=== PATIENT | male | born 1990 | race Caucasian/White ===

== ENCOUNTER 2017-08-06 01:24 | Inpatient (IN) | payer SELFPAY ==
[~2017-08-06] VITALS: Ht 175.3 cm; Wt 76.7 kg
[2017-08-06] MEDS ORDERED: ONDANSETRON HCL 4MG/2ML VIAL IV STA (03:02)
[2017-08-06] MEDS ORDERED: FAMOTIDINE 20MG/2ML VIAL IV STA (03:02)
[2017-08-06] MEDS ORDERED: MORPHINE SULFATE 4 MG/ML CPJ (NOT FOR IM USE) IV STA (03:02)
[2017-08-06] MEDS ORDERED: SODIUM CHLORIDE 0.9% 1,000 ML IV ONE (03:02)
[2017-08-06 03:37] LABS: BASOPHILS % 0.5 % (0.0-2.0); EOSINOPHILS % 2.1 % (0.0-5.0); HEMATOCRIT. 46.9 % (42.0-52.0); HEMOGLOBIN. 16.2 g/dL (14.0-18.0); LYMPHOCYTES % 23.9 % (20.0-50.0); MEAN CORPUSCULAR HEMOGLOBIN 30.1 pg (28.0-32.0); MEAN PLATELET VOLUME 9.1 fl (7.4-10.4); MONOCYTES % 7.1 % (2.0-8.0); NEUTROPHILS % 66.4 % (40.0-76.0); PLATELET 221 x1000/uL (130-400); RED BLOOD CELL COUNT 5.39 mill/uL (4.7-6.1); RED CELL DISTRIBUTION WIDTH 13.7 % (11.6-14.6)
[2017-08-06 03:43] LABS: CARBON DIOXIDE 27 mEq/L (21-32); CHLORIDE 102 mEq/L (98-107)
[2017-08-06] MEDS ORDERED: MORPHINE SULFATE 4 MG/ML CPJ (NOT FOR IM USE) IV ONE (05:15)
[2017-08-06 08:00] VITALS: BP 107/71
[2017-08-06 08:40] VITALS: BP 107/77
[2017-08-06] MEDS ORDERED: SODIUM CHLORIDE 0.45% 1,000 ML IV SCH ×2 (08:57→10:45)
[2017-08-06] MEDS ORDERED: HYDROCODONE/ACETAMINOPHEN 5/325MG TABLET PO PRN (09:00)
[2017-08-06] MEDS ORDERED: ONDANSETRON HCL 4MG/2ML VIAL IV PRN (09:00)
[2017-08-06] MEDS ORDERED: IOHEXOL-300 100 ML BOTTLE ONE (09:03)
[2017-08-06] MEDS ORDERED: INFLUENZA VIRUS VACCINE 0.5ML SYR IM ONE (11:45)
[2017-08-06 12:00] VITALS: BP 108/76
[2017-08-06 13:20] VITALS: BP 108/76
== END 2017-08-06 13:55 | disposition home or self-care (01) ==
LOC: ER 01:24 → 6EST 05:03 → ENRESERV 07:16
PROVIDERS: ADMIT Hospitalist; ATTEND Hospitalist
DX: K80.20 Calculus of gallbladder without cholecystitis without obstruction (principal); D72.829 Elevated white blood cell count, unspecified; F17.200 Nicotine dependence, unspecified, uncomplicated; Z71.6 Tobacco abuse counseling
CPT/HCPCS: 36415; 74177; 76700; 80053; 83690; 85025; 90686; 96361; 96374; 96375; 96376; 99285; J2270; J2405; J3490; J7030; Q9967

== ENCOUNTER 2018-09-05 01:45 | Inpatient (IN) | payer MEDICAID ==
[~2018-09-05] VITALS: Ht 175.3 cm; Wt 79.4 kg
[2018-09-05] MEDS ORDERED: ONDANSETRON HCL 4MG/2ML INJ IV STA (02:47)
[2018-09-05] MEDS ORDERED: KETOROLAC 30MG/ML VIAL IV STA (02:47)
[2018-09-05] MEDS ORDERED: FAMOTIDINE 20MG/2ML VIAL IV STA (02:47)
[2018-09-05 03:56] LABS: CHLORIDE 105 mEq/L (98-107)
[2018-09-05 05:57] LABS: CLARITY URINE CLEAR (CLEAR); COLOR URINE YELLOW (YELLOW); KETONES URINE NEGATIVE (NEGATIVE); LEUKOCYTE ESTERASE URINE NEGATIVE (NEGATIVE); NITRITE URINE NEGATIVE (NEGATIVE); OCCULT BLOOD URINE NEGATIVE (NEGATIVE); PH URINE 6.5 (4.5-8.0); PROTEIN URINE NEGATIVE (NEGATIVE); SPECIFIC GRAVITY URINE 1.004 (1.005-1.030); UROBILINOGEN URINE 0.2 E.U./dL (0.2-1.0)
[2018-09-05 05:59] LABS: BASOPHILS % 0.5 % (0.0-2.0); EOSINOPHILS % 0.4 % (0.0-5.0); HEMATOCRIT. 45.9 % (42.0-52.0); HEMOGLOBIN. 15.8 g/dL (14.0-18.0); LYMPHOCYTES % 9.3 % (20.0-50.0); MEAN CORPUSCULAR HEMOGLOBIN 30.9 pg (28.0-32.0); MEAN CORPUSCULAR VOLUME 89.9 fL (80.0-94.0); MEAN PLATELET VOLUME 9.7 fl (7.4-10.4); MONOCYTES % 4.8 % (2.0-8.0); PLATELET 301 x1000/uL (130-400); RED BLOOD CELL COUNT 5.11 mill/uL (4.7-6.1); RED CELL DISTRIBUTION WIDTH 13.1 % (11.6-14.6)
[2018-09-05] MEDS ORDERED: IPRATROPIUM/ALBUTEROL 0.5-3(2.5)MG/3ML NEB INH PRN (09:45)
[2018-09-05] MEDS ORDERED: ONDANSETRON HCL 4MG/2ML INJ IV PRN (09:45)
[2018-09-05] MEDS ORDERED: MORPHINE SULFATE 4 MG/ML CPJ (NOT FOR IM USE) IV PRN (09:45)
[2018-09-05] MEDS ORDERED: DOCUSATE SODIUM 100MG CAPSULE PO PRN (09:45)
[2018-09-05] MEDS ORDERED: GUAIFENESIN 200MG/10ML SUGAR FREE UDC PO PRN (09:45)
[2018-09-05] MEDS ORDERED: DIPHENHYDRAMINE 50MG/ML VIAL IV PRN (09:45)
[2018-09-05] MEDS ORDERED: MAGNESIUM/ALUMINUM HYDROXIDE/SIMETHICONE 30ML UDC PO PRN (09:45)
[2018-09-05] MEDS ORDERED: NA PHOS,M-B/NA PHOS,DI-BA ENEMA 118ML PR PRN (09:45)
[2018-09-05] MEDS ORDERED: PIPERACILLIN/TAZ 3.375G PREMIX 50 ML IV SCH (09:45)
[2018-09-05] MEDS ORDERED: CLONIDINE 0.1MG TABLET PO PRN (09:45)
[2018-09-05] MEDS ORDERED: ACETAMINOPHEN 325MG TABLET PO PRN (09:45)
[2018-09-05] MEDS ORDERED: HYDROCODONE/ACETAMINOPHEN 5/325MG TABLET PO PRN (09:45)
[2018-09-05] MEDS ORDERED: LORAZEPAM 2MG/ML CPJ IV PRN (09:45)
[2018-09-05 10:40] VITALS: BP 108/68
[2018-09-05] MEDS ORDERED: ENOXAPARIN 40MG/0.4ML SYR SUBCUT SCH (12:30)
[2018-09-05 13:29] LABS: CHLORIDE 106 mEq/L (98-107)
[2018-09-05] MEDS: DEXT 5%/0.45% NACL 1000ML 1,000 ML IV SCH ×2 (15:14→23:51)
[2018-09-05] MEDS: PIPERACILLIN/TAZ 3.375G PREMIX 50 ML IV SCH ×2 (15:27→21:45)
[2018-09-05 20:00] VITALS: BP 106/64
[2018-09-05] MEDS ORDERED: INFLUENZA VIRUS VACCINE(AFLURIA) 0.5ML SYR IM ONE (20:45)
[2018-09-06] VITALS: BP 110/61
[2018-09-06 04:00] VITALS: BP 108/62
[2018-09-06] MEDS: PIPERACILLIN/TAZ 3.375G PREMIX 50 ML IV SCH ×2 (04:11→10:24)
[2018-09-06 06:51] LABS: BASOPHILS % 0.8 % (0.0-2.0); EOSINOPHILS % 3.1 % (0.0-5.0); HEMATOCRIT. 44.1 % (42.0-52.0); HEMOGLOBIN. 14.8 g/dL (14.0-18.0); LYMPHOCYTES % 33.9 % (20.0-50.0); MEAN CORPUSCULAR HEMOGLOBIN 30.8 pg (28.0-32.0); MEAN CORPUSCULAR VOLUME 91.3 fL (80.0-94.0); MEAN PLATELET VOLUME 9.5 fl (7.4-10.4); MONOCYTES % 8.9 % (2.0-8.0); NEUTROPHILS % 53.3 % (40.0-76.0); PLATELET 316 x1000/uL (130-400); RED BLOOD CELL COUNT 4.82 mill/uL (4.7-6.1); RED CELL DISTRIBUTION WIDTH 13.6 % (11.6-14.6)
[2018-09-06 07:15] LABS: CHLORIDE 107 mEq/L (98-107)
[2018-09-06 07:23] LABS: LDL CHOLESTEROL 110 mg/dL (5-100)
[2018-09-06 07:26] LABS: HDL CHOLESTEROL 42 mg/dL (40-59)
[2018-09-06 08:00] VITALS: BP 107/69
[2018-09-06] MEDS: DEXT 5%/0.45% NACL 1000ML 1,000 ML IV SCH (10:27)
[2018-09-06 10:32] VITALS: BP 107/69
== END 2018-09-06 11:15 | disposition home or self-care (01) ==
LOC: ER 01:45 → 6EST 06:12 → ENRESERV 10:16
PROVIDERS: ADMIT Internal Medicine; ATTEND Internal Medicine
DX: K80.20 Calculus of gallbladder without cholecystitis without obstruction (principal); E86.0 Dehydration
CPT/HCPCS: 36415; 76705; 80048; 80061; 90686; 96372; 96374; 96375; 99285; J1650; J1885; J2270; J2405; J2543; J3490

== ENCOUNTER 2019-05-23 01:49 | Inpatient (IN) | payer MEDICAID ==
[~2019-05-23] VITALS: Ht 175.3 cm; Wt 74.8 kg
[2019-05-23] MEDS ORDERED: NALOXONE HCL 0.4 MG/ML 1ML VIAL IV PRN (02:00)
[2019-05-23 02:44] LABS: CHLORIDE 99 mEq/L (98-107)
[2019-05-23 02:48] LABS: ETHANOL BLOOD 213 mg/dL
[2019-05-23 03:00] LABS: BASOPHILS % 0.3 % (0.0-2.0); EOSINOPHILS % 0.7 % (0.0-5.0); HEMATOCRIT. 45.3 % (42.0-52.0); HEMOGLOBIN. 15.4 g/dL (14.0-18.0); MEAN CORPUSCULAR HEMOGLOBIN 29.6 pg (28.0-32.0); MEAN PLATELET VOLUME 8.5 fl (7.4-10.4); MONOCYTES % 6.3 % (2.0-8.0); NEUTROPHILS % 78.7 % (40.0-76.0); PLATELET 223 x1000/uL (130-400); RED CELL DISTRIBUTION WIDTH 14.1 % (11.6-14.6)
[2019-05-23] MEDS ORDERED: SODIUM CHLORIDE 0.9% 1,000 ML IV ONE (05:15)
[2019-05-23 06:03] LABS: CLARITY URINE CLEAR (CLEAR); COLOR URINE YELLOW (YELLOW); KETONES URINE NEGATIVE (NEGATIVE); LEUKOCYTE ESTERASE URINE NEGATIVE (NEGATIVE); NITRITE URINE NEGATIVE (NEGATIVE); OCCULT BLOOD URINE NEGATIVE (NEGATIVE); PROTEIN URINE TRACE (NEGATIVE); SPECIFIC GRAVITY URINE 1.007 (1.005-1.030)
[2019-05-23 06:19] LABS: *AMPHETAMINES SCREEN URINE NEGATIVE (NEGATIVE); *BARBITURATES SCREEN URINE NEGATIVE (NEGATIVE); *BENZODIAZEPINES SCREEN URINE NEGATIVE (NEGATIVE); *COCAINE SCREEN URINE NEGATIVE (NEGATIVE)
[2019-05-23 06:20] LABS: CANNABINOID URINE SCREEN PRESUMTIVE POSITIVE (NEGATIVE); METHADONE URINE SCREEN NEGATIVE (NEGATIVE); OPIATES URINE SCREEN PRESUMTIVE POSITIVE (NEGATIVE); PHENCYCLIDINE URINE SCREEN NEGATIVE (NEGATIVE)
[2019-05-23] MEDS ORDERED: ONDANSETRON HCL 4MG/2ML INJ IV PRN (15:30)
[2019-05-23] MEDS ORDERED: ACETAMINOPHEN 325MG TABLET PO PRN (15:30)
[2019-05-23] MEDS ORDERED: POTASSIUM CHLORIDE 20MEQ TABLET SR PO NR (16:29)
[2019-05-23] MEDS: SODIUM CHLORIDE 0.9% 1,000 ML IV SCH (16:57)
[2019-05-23] MEDS ORDERED: MVI, ADULT NO.1 10 ML, FOLIC ACID 1 MG, THIAMINE HCL 100 MG in SODIUM CHLORIDE 0.9% 1,0... IV ONE ×4 (20:00)
[2019-05-23 22:50] VITALS: BP 106/67
[2019-05-24] VITALS: BP 106/67
[2019-05-24] MEDS: SODIUM CHLORIDE 0.9% 1,000 ML IV SCH ×2 (02:45→13:03)
[2019-05-24 04:00] VITALS: BP 93/57
[2019-05-24 07:04] LABS: BASOPHILS % 0.7 % (0.0-2.0); EOSINOPHILS % 3.3 % (0.0-5.0); HEMATOCRIT. 40.2 % (42.0-52.0); HEMOGLOBIN. 13.7 g/dL (14.0-18.0); LYMPHOCYTES % 38.7 % (20.0-50.0); MEAN CORPUSCULAR HEMOGLOBIN 29.7 pg (28.0-32.0); MEAN CORPUSCULAR VOLUME 87.2 fL (80.0-94.0); MEAN PLATELET VOLUME 9.1 fl (7.4-10.4); MONOCYTES % 10.2 % (2.0-8.0); NEUTROPHILS % 47.1 % (40.0-76.0); PLATELET 195 x1000/uL (130-400); RED BLOOD CELL COUNT 4.61 mill/uL (4.7-6.1); RED CELL DISTRIBUTION WIDTH 14.1 % (11.6-14.6)
[2019-05-24 07:09] LABS: CHLORIDE 106 mEq/L (98-107)
[2019-05-24 07:18] LABS: PHOSPHORUS 2.7 mg/dL (2.5-4.9)
[2019-05-24 08:00] VITALS: BP 92/60
[2019-05-24 12:00] VITALS: BP 100/58
[2019-05-24 14:40] VITALS: BP 123/72
== END 2019-05-24 13:30 | disposition home or self-care (01) | DRG 812 ==
LOC: ER 01:49 → 7WST 05:03 → EDBEDREQTM 05:06 → EDBEDREQ 05:06 → ENRESERV 21:37 → 7WST 05-24 10:03
PROVIDERS: ADMIT Internal Medicine; ATTEND Internal Medicine
DX: T40.7X1A Poisoning by cannabis (derivatives), accidental (unintentional), initial encounter (principal); G92 Toxic encephalopathy; E87.1 Hypo-osmolality and hyponatremia; E87.6 Hypokalemia; T40.601A Poisoning by unspecified narcotics, accidental (unintentional), initial encounter; F12.90 Cannabis use, unspecified, uncomplicated; F17.200 Nicotine dependence, unspecified, uncomplicated; Y92.89 Other specified places as the place of occurrence of the external cause; Z83.3 Family history of diabetes mellitus
CPT/HCPCS: 36415; 80048; 80305; 80320; 81003; 82962; 83036; 83735; 84100; 99285; J2310; J2405; J3411; J3490; J7030; G0480

== ENCOUNTER 2023-10-11 18:26 | Emergency (ER) | payer MEDICAID ==
[~2023-10-11] VITALS: Ht 175.3 cm; Wt 90.0 kg
[2023-10-11 18:30] VITALS: BP 125/83; PULSE 105; RESP 16; TEMP 98.2; O2SAT 97
[2023-10-11 20:55] LABS: EOSINOPHILS % 1.2 % (0.0-5.0); HEMATOCRIT. 37.9 % (42.0-52.0); HEMOGLOBIN. 12.8 g/dL (14.0-18.0); LYMPHOCYTES % 21.3 % (20.0-50.0); MEAN CORPUSCULAR HEMOGLOBIN 33.6 pg (28.0-32.0); MEAN CORPUSCULAR HGB CONC 33.7 g/dL (31.0-37.0); MEAN CORPUSCULAR VOLUME 99.6 fL (80.0-94.0); MEAN PLATELET VOLUME 8.1 fl (7.4-10.4); NEUTROPHILS % 67.5 % (40.0-76.0); PLATELET 204 x1000/uL (130-400); RED BLOOD CELL COUNT 3.81 mill/uL (4.7-6.1); RED CELL DISTRIBUTION WIDTH 14.8 % (11.6-14.6); WHITE BLOOD COUNT 10.9 x1000/uL (4.5-11.0)
[2023-10-11 21:08] LABS: ALANINE AMINOTRANSFERASE 58 IU/L (10-49); ASPARTATE AMINOTRANSFERASE 164 IU/L (<34); BILIRUBIN TOTAL 1.6 mg/dL (0.1-1.0); CALCIUM 8.2 mg/dL (8.7-10.4); CARBON DIOXIDE 24 mEq/L (21-32); CHLORIDE 106 mEq/L (98-107); CREATININE 0.5 mg/dL (0.6-1.3); GLUCOSE 79 mg/dL (70-105); POTASSIUM 3.6 mEq/L (3.5-5.1); PROTEIN TOTAL 8.1 g/dL (6.0-8.3); SODIUM 138 mEq/L (136-145)
[2023-10-11 21:12] LABS: TROPONIN I HIGH SENSITIVITY < 4 ng/L (3.0-53); UREA NITROGEN BLOOD < 5 mg/dL (9-23)
[2023-10-11] MEDS ORDERED: TOPUD PO (21:14)
[2023-10-11] MEDS ORDERED: ACETAMINOPHEN 325MG TABLET PO ONE (21:15)
== END 2023-10-11 22:15 | disposition home or self-care (01) ==
LOC: ER 18:26
DX: R07.89 Other chest pain (principal); F15.10 Other stimulant abuse, uncomplicated
CPT/HCPCS: 36415; 80053; 84484; 85025; 93005; 99284

== ENCOUNTER 2025-01-25 07:42 | Inpatient (IN) | payer BC, MEDICAID ==
[~2025-01-25] VITALS: Ht 175.3 cm; Wt 85.3 kg
[~2025-01-25 07:42] MED LIST: TOPUD PO
[2025-01-25 08:22] LABS: BASOPHILS % 1.1 % (0.0-2.0); DIFFERENTIAL COMMENT 0; EOSINOPHILS % 4.5 % (0.0-5.0); HEMATOCRIT. 39.3 % (42.0-52.0); HEMOGLOBIN. 13.4 g/dL (14.0-18.0); LYMPHOCYTES % 27.4 % (20.0-50.0); MEAN CORPUSCULAR HEMOGLOBIN 35.2 pg (28.0-32.0); MEAN CORPUSCULAR VOLUME 103.4 fL (80.0-94.0); MEAN PLATELET VOLUME 8.5 fl (7.4-10.4); MONOCYTES % 9.3 % (2.0-8.0); NEUTROPHILS % 57.7 % (40.0-76.0); PLATELET 109 x1000/uL (130-400); RED CELL DISTRIBUTION WIDTH 15.7 % (11.6-14.6); WHITE BLOOD COUNT 7.1 x1000/uL (4.5-11.0)
[2025-01-25 08:24] LABS: CHLORIDE 108 mEq/L (98-107); POTASSIUM 3.7 mEq/L (3.5-5.1); SODIUM 142 mEq/L (136-145)
[2025-01-25 08:26] LABS: CALCIUM 7.8 mg/dL (8.7-10.4); CARBON DIOXIDE 27 mEq/L (21-32)
[2025-01-25 08:31] LABS: CREATININE 0.5 mg/dL (0.6-1.3); GLUCOSE 96 mg/dL (70-105); UREA NITROGEN BLOOD < 5 mg/dL (9-23)
[2025-01-25 08:33] LABS: ALANINE AMINOTRANSFERASE 101 IU/L (10-49); ALBUMIN 2.7 g/dL (3.2-4.8); ASPARTATE AMINOTRANSFERASE 439 IU/L (<34); BILIRUBIN DIRECT 3.7 mg/dL (<=3.0); BILIRUBIN TOTAL 5.9 mg/dL (0.1-1.0); PROTEIN TOTAL 7.1 g/dL (6.0-8.3)
[2025-01-25] MEDS: KETOROLAC 15MG/ML VIAL IV ONE (10:57)
[2025-01-25 15:28] VITALS: BP 109/73; PULSE 88; RESP 14; TEMP 36.5
[2025-01-25 15:52] VITALS: BP 109/73; PULSE 88; RESP 14; TEMP 36.5; O2SAT 99
[2025-01-25] MEDS: PIPERACILLIN/TAZO 3.375G/50ML 50 ML IV SCH (15:59)
[2025-01-25] MEDS ORDERED: ONDANSETRON HCL 4MG/2ML INJ IV PRN (16:15)
[2025-01-25] MEDS ORDERED: LORAZEPAM 1MG TABLET PO PRN (16:15)
[2025-01-25] MEDS: KETOROLAC 30MG/ML VIAL IV PRN (17:07)
[2025-01-25] MEDS: PANTOPRAZOLE SODIUM 40 MG/VIAL IV SCH (17:07)
[2025-01-25 17:42] LABS: INR 1.6; PROTHROMBIN TIME 16.3 sec (9.6-11.0)
[2025-01-25 18:01] LABS: HEPATITIS B SURFACE ANTIGEN NEGATIVE (Negative)
[2025-01-25 18:22] LABS: HEPATITIS C AB NON REACTIVE (Neg) (Negative)
[2025-01-25 20:00] VITALS: BP 104/80; PULSE 64; RESP 16; TEMP 36.7; O2SAT 97
[2025-01-25] MEDS: CHLORDIAZEPOXIDE 25MG CAPSULE PO SCH (21:43)
[2025-01-26] VITALS: BP 117/65; PULSE 78; RESP 17; TEMP 37; O2SAT 96
[2025-01-26 00:22] LABS: CLARITY URINE CLEAR (CLEAR); COLOR URINE DARK YELLOW (YELLOW); GLUCOSE URINE NEGATIVE (NEGATIVE); KETONES URINE TRACE (NEGATIVE); LEUKOCYTE ESTERASE URINE TRACE (NEGATIVE); NITRITE URINE NEGATIVE (NEGATIVE); OCCULT BLOOD URINE NEGATIVE (NEGATIVE); PROTEIN URINE 1+ (NEGATIVE); SPECIFIC GRAVITY URINE 1.027 (1.005-1.030)
[2025-01-26 00:52] LABS: WBC URINE 0-2 /hpf (0-2)
[2025-01-26 00:53] LABS: BACTERIA URINE TRACE; RBC URINE NONE SEEN /hpf (0-2); SQUAMOUS EPITHELIAL CELL URINE 1+ /lpf (RARE/1+)
[2025-01-26 04:00] VITALS: BP 98/49; PULSE 86; RESP 18; TEMP 37.1; O2SAT 96
[2025-01-26 07:50] LABS: *AMPHETAMINES SCREEN URINE NEGATIVE (NEGATIVE); *BARBITURATES SCREEN URINE NEGATIVE (NEGATIVE); *BENZODIAZEPINES SCREEN URINE NEGATIVE (NEGATIVE); *COCAINE SCREEN URINE NEGATIVE (NEGATIVE); CANNABINOID URINE SCREEN PRESUMPTIVE POSITIVE (NEGATIVE); ECSTASY MDMA SCREEN URINE NEGATIVE (NEGATIVE); METHADONE URINE SCREEN NEGATIVE (NEGATIVE); OPIATES URINE SCREEN NEGATIVE (NEGATIVE); PHENCYCLIDINE URINE SCREEN NEGATIVE (NEGATIVE)
[2025-01-26 11:49] VITALS: BP 92/54; PULSE 93; RESP 15; O2SAT 95
[2025-01-26] MEDS ORDERED: LIDOCAINE HCL 1% 10 MG/ML 10ML VIAL ONE (11:51)
[2025-01-26 12:00] VITALS: BP 103/75; PULSE 92; RESP 18; TEMP 36.8; O2SAT 94
[2025-01-26 13:03] LABS: BODY FLUID RBC 869 /cu mm (0-2000); BODY FLUID WBC 144 /cu mm (0-200)
[2025-01-26 13:20] LABS: BODY FLUID MONOCYTES 88 %
[2025-01-26 15:12] VITALS: BP 103/75; PULSE 92; TEMP 98.3; O2SAT 99
== END 2025-01-26 18:22 | disposition home or self-care (01) ==
LOC: ER 07:42 → 3WST 13:33 → EDBEDREQTM 13:38 → EDBEDREQ 13:38 → ENRESERV 13:41
PROVIDERS: ADMIT Internal Medicine; ATTEND Internal Medicine
PROC: 0W9G3ZZ Drainage of Peritoneal Cavity, Percutaneous Approach (ICD-10-PCS; principal; 2025-01-26)
DX: K74.60 Unspecified cirrhosis of liver (principal); R18.8 Other ascites; F10.129 Alcohol abuse with intoxication, unspecified; F17.210 Nicotine dependence, cigarettes, uncomplicated; Y90.8 Blood alcohol level of 240 mg/100 ml or more; Z79.899 Other long term (current) drug therapy; K29.20 Alcoholic gastritis without bleeding
CPT/HCPCS: 36415; 49083; 71045; 74176; 76700; 80048; 80076; 80305; 80320; 81003; 85025; 86705; 87340; 99285; A4606; J1885; J2003; J2470; J2543; G0480

== ENCOUNTER 2025-05-24 15:36 | Emergency (ER) | payer BC, MEDICAID ==
[~2025-05-24] VITALS: Ht 175.3 cm; Wt 75.0 kg
[2025-05-24 15:38] VITALS: BP 136/76; PULSE 70; RESP 16; TEMP 36.9; O2SAT 99
[2025-05-24 16:35] LABS: BASOPHILS % 1.4 % (0.0-2.0); EOSINOPHILS % 4.7 % (0.0-5.0); HEMATOCRIT. 29.4 % (42.0-52.0); HEMOGLOBIN. 10.3 g/dL (14.0-18.0); LYMPHOCYTES % 14.2 % (20.0-50.0); MONOCYTES % 10.0 % (2.0-8.0); NEUTROPHILS % 69.7 % (40.0-76.0); RED BLOOD CELL COUNT 2.84 mill/uL (4.7-6.1); RED CELL DISTRIBUTION WIDTH 14.6 % (11.6-14.6)
[2025-05-24 16:43] LABS: INR 1.6
[2025-05-24 16:45] LABS: CREATININE 0.7 mg/dL (0.6-1.3); UREA NITROGEN BLOOD 7 mg/dL (9-23)
[2025-05-24 16:47] LABS: ASPARTATE AMINOTRANSFERASE 68 IU/L (<34); BILIRUBIN DIRECT 3.5 mg/dL (<=3.0)
[2025-05-24 16:48] LABS: BILIRUBIN TOTAL 6.2 mg/dL (0.1-1.0); PROTEIN TOTAL 6.6 g/dL (6.0-8.3)
[2025-05-24 17:22] LABS: MEAN PLATELET VOLUME 8.8 fl (7.4-10.4); PLATELET 95 x1000/uL (130-400)
== END 2025-05-24 17:37 | disposition left against medical advice (07) ==
LOC: ER 15:36
DX: R11.2 Nausea with vomiting, unspecified (principal); Z53.21 Procedure and treatment not carried out due to patient leaving prior to being seen by health care provider; Z79.899 Other long term (current) drug therapy
CPT/HCPCS: 36415; 80048; 80076; 80320; 85025; 99281; G0480

== ENCOUNTER 2025-07-18 10:21 | Emergency (ER) | payer BC, MEDICAID ==
[~2025-07-18] VITALS: Ht 165.1 cm; Wt 66.0 kg
[2025-07-18 10:25] VITALS: O2SAT 97
[2025-07-18] MEDS: SODIUM CHLORIDE 0.9% 1,000 ML IV ONE (10:57)
[2025-07-18] MEDS: MORPHINE SULFATE 4 MG/ML INJ (FOR IV/IM USE) IV ONE (10:58)
[2025-07-18] MEDS: ONDANSETRON HCL 4MG/2ML INJ IV ONE (10:58)
[2025-07-18 11:14] LABS: BASOPHILS % 0.7 % (0.0-2.0); EOSINOPHILS % 4.7 % (0.0-5.0); HEMATOCRIT. 40.5 % (42.0-52.0); HEMOGLOBIN. 13.4 g/dL (14.0-18.0); LYMPHOCYTES % 31.3 % (20.0-50.0); MEAN PLATELET VOLUME 8.2 fl (7.4-10.4); MONOCYTES % 4.1 % (2.0-8.0); NEUTROPHILS % 59.2 % (40.0-76.0); PLATELET 79 x1000/uL (130-400); RED BLOOD CELL COUNT 3.90 mill/uL (4.7-6.1); RED CELL DISTRIBUTION WIDTH 14.9 % (11.6-14.6)
[2025-07-18 11:30] LABS: CREATININE 0.6 mg/dL (0.6-1.3); ETHANOL BLOOD 230 mg/dL (<10); UREA NITROGEN BLOOD < 5 mg/dL (9-23)
[2025-07-18 11:32] LABS: ASPARTATE AMINOTRANSFERASE 198 IU/L (<34); BILIRUBIN DIRECT 2.7 mg/dL (<=3.0); BILIRUBIN TOTAL 5.0 mg/dL (0.1-1.0); PROTEIN TOTAL 6.8 g/dL (6.0-8.3)
[2025-07-18] MEDS: KETOROLAC 15MG/ML VIAL IV ONE (16:34)
[2025-07-18 16:41] VITALS: BP 116/73; PULSE 107; RESP 12; TEMP 36.4; O2SAT 97
[2025-07-27] MEDS ORDERED: THIA100T72 MT (09:46)
[2025-07-27] MEDS ORDERED: LIPA1CAP27 PO (09:46)
== END 2025-07-18 16:44 | disposition home or self-care (01) ==
LOC: ER 10:21
DX: R10.13 Epigastric pain (principal)
CPT/HCPCS: 80076; 80048; 80320; 83690; 85025; 36415; 76705; 96361; 96374; 96375; 99291; J1885; J2405; J2270; J7030; Z7610 ×2; A4606; G0480